=== PATIENT | female | born 1970 | race Caucasian/White ===

== ENCOUNTER → 2020-04-01 10:19 | Outpatient (BNVA) | payer OTHER, SELFPAY | PROVIDERS: PCP Internal Medicine; Visit Provider Urology | DX: Z76.89 Persons encountering health services in other specified circumstances (principal) ==

== ENCOUNTER 2020-04-22 06:22 | Day surgery (SDC) | payer OTHER, SELFPAY ==
--- NOTE | 2020-04-22 06:23 | XR_ITS ---
EXAMINATION: XR ABDOMEN KUB CLINICAL INDICATION: Stones. COMPARISON: None TECHNIQUE: AP view of the abdomen. FINDINGS: There is a 4 mm radiopaque calculi lower pole left kidney. Moderate stool in the right colon overlies the right kidney. There is no organomegaly. There is IUD noted within the pelvis. No gross bony abnormality seen except for minimal levoscoliosis. XR/XR KUB IMPRESSION: Small 4 mm radiopaque calculi lower pole left kidney is suspected.
[2020-04-22 07:08] VITALS: BMI 29.4
[2020-04-22 07:16] VITALS: BP 118/59; PULSE 73; RESP 18; TEMP 36.3; O2SAT 95
[2020-04-22 07:17] LABS: UPreg QC Valid YES; Urine Pregnancy NEGATIVE (NEGATIVE)
--- NOTE | 2020-04-22 07:49 | P.CONAN_ITS ---
[facility] Past Medical History Medical History Renal calculi Surgical History Surgical History History of sleeve gastrectomy Social History Social History Smoking Status: Never smoker Use of substances other than those prescribed or required for medical reasons: No Advance Directives: No Advance Directives Information Provided: Yes Meds Allergies Allergy/AdvReac Type Severity Reaction Status Date / Time amoxicillin Allergy Intermediate Hives Verified 04/22/20 07:07 morphine Allergy Intermediate Vomiting Verified 04/22/20 07:07 Sulfa (Sulfonamide Allergy Intermediate Hives Verified 04/22/20 07:07 Antibiotics) Erythromycin Allergy Intermediate Vomiting Uncoded 04/22/20 07:07 Sulfacet-R Allergy Intermediate Hives Uncoded 04/22/20 07:07 Home Medications Medication Instructions Recorded Confirmed Type albuterol sulfate 90 mcg/actuation 90 mcg INHALATION Q4-6H PRN 04/01/20 04/16/20 History aerosol inhaler cholecalciferol (vitamin D3) 2 tab PO DAILY 04/16/20 04/16/20 History [Vitamin D3] pyridoxine (vitamin B6) [Vitamin 1 tab PO DAILY 04/16/20 04/16/20 History B-6] Exam Exam Date and Time: April 22, 2020 0749 Height,Weight and Vital Signs: Height 5 ft 7 in Weight 85.275 kg Last Vital Signs Temp 97.3 F 04/22/20 07:16 Pulse 73 04/22/20 07:16 Resp 18 04/22/20 07:16 BP 118/59 L 04/22/20 07:16 Pulse Ox 95 04/22/20 07:16 Pertinent Lab Results Pertinent Lab Results: Laboratory Tests 04/22/20 06:55 Urine Test NEGATIVE Airway Mallampati Class: II TM Dist: >3cm Neck ROM: Full Assessment and Plan Assessment Anesthesia Assessment: Anesthesia Plan Discussed and Chart Reviewed Final Anesthetic Review NPO: Yes ASA Class: II Final Preanesthetic Review: No Changes in Pt Med Stat, Meds/Allgs Chart Revi ewed, Consent Obtained/Reviewed and Anes Risks/Benef Reviewed Patient Risk: Low Procedure Risk: Low Assessment/Block/Sedation in SS: Assess/Block/Sedation-SS Anesthetic Plan Anesthetic Plan: MAC: Disposition: Standard PACU
--- NOTE | 2020-04-22 08:12 | PM.OP ---
Brief Operative Note Date of Service: 04/22/20 Pre-op diagnosis: Left renal stone Post-op diagnosis: same Procedure: left eswl Surgeon: Nelson Tolentino MD Anesthesia: MAC Estimated blood loss (mL): 0 Condition: stable Disposition: same day
--- NOTE | 2020-04-22 08:12 | MHC.SHP ---
Pre-Procedural Eval Section A The patient is an INPATIENT: No Changes since office visit: No Cold of Flu in the past 2 weeks, No New Medical Problems, No Changes in Medication and No Patient answered all questions The History & Physical has been completed within 30 days and I have reviewed it.: Yes Section B Chief Complaint: calculus kidney Allergies: Allergies Allergy/AdvReac Type Severity Reaction Status Date / Time amoxicillin Allergy Intermediate Hives Verified 04/22/20 07:07 morphine Allergy Intermediate Vomiting Verified 04/22/20 07:07 Sulfa (Sulfonamide Allergy Intermediate Hives Verified 04/22/20 07:07 Antibiotics) Erythromycin Allergy Intermediate Vomiting Uncoded 04/22/20 07:07 Sulfacet-R Allergy Intermediate Hives Uncoded 04/22/20 07:07 Plan I have reviewed the history and physical and performed a pertinent physical examination on my patient. No changes have occurred unless specified. Left ESWL
--- NOTE | 2020-04-22 08:17 | P.CONAN_ITS ---
[facility] Past Medical History Medical History Renal calculi Surgical History Surgical History History of sleeve gastrectomy Social History Social History Smoking Status: Never smoker Use of substances other than those prescribed or required for medical reasons: No Advance Directives: No Advance Directives Information Provided: Yes Meds Allergies Allergy/AdvReac Type Severity Reaction Status Date / Time amoxicillin Allergy Intermediate Hives Verified 04/22/20 07:07 morphine Allergy Intermediate Vomiting Verified 04/22/20 07:07 Sulfa (Sulfonamide Allergy Intermediate Hives Verified 04/22/20 07:07 Antibiotics) Erythromycin Allergy Intermediate Vomiting Uncoded 04/22/20 07:07 Sulfacet-R Allergy Intermediate Hives Uncoded 04/22/20 07:07 Home Medications Medication Instructions Recorded Confirmed Type albuterol sulfate 90 mcg/actuation 90 mcg INHALATION Q4-6H PRN 04/01/20 04/16/20 History aerosol inhaler cholecalciferol (vitamin D3) 2 tab PO DAILY 04/16/20 04/16/20 History [Vitamin D3] pyridoxine (vitamin B6) [Vitamin 1 tab PO DAILY 04/16/20 04/16/20 History B-6] Exam Exam Date and Time: April 22, 2020 0817 Height,Weight and Vital Signs: Height 5 ft 7 in Weight 85.275 kg Last Vital Signs Temp 97.3 F 04/22/20 07:16 Pulse 73 04/22/20 07:16 Resp 18 04/22/20 07:16 BP 118/59 L 04/22/20 07:16 Pulse Ox 95 04/22/20 07:16 Pertinent Lab Results Pertinent Lab Results: Laboratory Tests 04/22/20 06:55 Urine Test NEGATIVE
--- NOTE | 2020-04-22 08:21 | W.PM.OPN ---
Operative Note Operative Note Date of Service: 04/22/20 Narrative: PreOperative Diagnosis: left Renal stones Post Operative Diagnosis: left Renal stones Procedure: left ESWL Surgeon: Dr Nelson Tolentino Anesthesia: mac/sedation Indications for procedure: They understand ESWL may be a staged procedure and subsequent intervention may be required based on imaging after ESWL. They also understand there is a risk of bleeding, infection, damage to adjacent organs. Procedure: After informed consent was verified the patient was brought to the operating room and placed in a supine position. Anesthesia was performed per protocol. Safety pause time-out was performed. Imaging was in the room and laterality confirmed. ESWL was performed. The 1st 500 shocks were performed at 60 hertz. These were performed with increasing power. Once maximum power was reached the rate was increased to 180 hertz. A total of 2500 shocks were given. Fluoroscopy showed stone disintegration. They tolerated procedure well and was transferred to the recovery area upon completion.
[2020-04-22 08:45] VITALS: BP 101/61; PULSE 63; RESP 16; TEMP 36.4; O2SAT 96
[2020-04-22 09:00] VITALS: BP 108/45; PULSE 60; RESP 18; O2SAT 98
[2020-04-22 09:15] VITALS: BP 108/50; PULSE 58; RESP 20; O2SAT 100
[2020-04-22] MEDS: Acetaminophen 325 MG TABLET 650 MG PO (09:22)
[2020-04-22 09:30] VITALS: BP 118/64; PULSE 62; RESP 20; O2SAT 100
[2020-04-22 09:45] VITALS: BP 112/63; PULSE 63; RESP 20; O2SAT 100
--- NOTE | 2020-04-22 10:22 | HO.POSTANES ---
Post Anesthesia Evaluation Post Anesthesia Evaluation Vital Signs: Vital Signs Temp Pulse Resp BP Pulse Ox 04/22/20 09:45 97.5 F 63 20 112/63 100 04/22/20 09:30 62 20 118/64 100 04/22/20 09:15 58 20 108/50 L 100 04/22/20 09:00 60 18 108/45 L 98 04/22/20 08:45 97.5 F 63 16 101/61 96 04/22/20 07:16 97.3 F 73 18 118/59 L 95 Anesthesia: Monitored Mental Status: Awake Pain Control: Satisfactory Nausea/Vomiting: None Hydration: Adequate Anesthesia-Related Issues: No Anes. Related Issues
== END 2020-04-22 10:21 | disposition home or self-care (01) ==
PROVIDERS: Anesthesiology; PCP Internal Medicine; Visit Provider Urology
PROC: (CPT 50590; principal; 2020-04-22 08:10)
DX: N20.0 Calculus of kidney (principal); Z87.442 Personal history of urinary calculi; Z98.84 Bariatric surgery status; Z88.1 Allergy status to other antibiotic agents; Z88.2 Allergy status to sulfonamides; Z88.8 Allergy status to other drugs, medicaments and biological substances; Z79.899 Other long term (current) drug therapy
CPT/HCPCS: 50590; 74018; 81025; J1885; J2405; J3010